=== PATIENT | female | born 1985 | race Caucasian/White ===

== ENCOUNTER 2018-11-23 03:18 | Outpatient (CLI) | payer OTHER ==
[2018-11-23 05:08] LABS: ADD UMIC NO; UR ASCORBIC ACID NEGATIVE (NEGATIVE); UR BILIRUBIN (Dip) NEGATIVE (NEGATIVE); UR BLOOD (Dip) NEGATIVE (NEGATIVE); UR CLARITY CLEAR (CLEAR); UR COLOR YELLOW (YELLOW); UR GLUCOSE (Dip) NEGATIVE (NEGATIVE); UR KETONES (Dip) NEGATIVE (NEGATIVE); UR LEUKOCYTE ESTERASE (Dip) NEGATIVE Leu/ul (NEGATIVE); UR NITRITE (Dip) NEGATIVE (NEGATIVE); UR SPECIFIC GRAVITY (Dip) 1.015 (1.003-1.030); UR TOTAL PROTEIN (Dip) NEGATIVE (NEGATIVE); UR UROBILINOGEN (Dip) NEGATIVE (NEGATIVE)
== END 2018-11-23 06:50 | disposition home or self-care (01) ==
LOC: OBT 03:18 → L-D 03:18 → OBT 06:50
DX: O62.9 Abnormality of forces of labor, unspecified (principal); Z3A.39 39 weeks gestation of pregnancy
CPT/HCPCS: 76815; 76818; 81003

== ENCOUNTER 2018-11-23 21:24 | Inpatient (IN) | payer OTHER ==
[2018-11-23] MEDS ORDERED: METHYLERGONOVINE 0.2 MG INJ IM (22:00)
[2018-11-23] MEDS ORDERED: BUTORPHANOL 2 MG INJ IV (22:00)
[2018-11-23] MEDS ORDERED: IBUPROFEN 600 MG TAB PO (22:00)
[2018-11-23] MEDS ORDERED: OXYTOCIN 30 UNITS/LR 500 ML IV (22:00)
[2018-11-23] MEDS ORDERED: MISOPROSTOL 200 MCG TAB PR (22:00)
[2018-11-23] MEDS ORDERED: CARBOPROST 250 MCG INJ IM (22:00)
[2018-11-23] MEDS ORDERED: LIDOCAINE 1% (MPF) 30 ML INJ INJ (22:00)
[2018-11-23] MEDS: LACTATED RINGER'S 1,000 ML IV (22:03)
[2018-11-23] MEDS ORDERED: LACTATED RINGER'S 1,000 ML IV (22:03)
[2018-11-23 22:04] LABS: ADD MAN DIFF? NO
[2018-11-23 22:09] LABS: BASOPHILS % 0.3 % (0.0-2.0); EOSINOPHILS % 0.3 % (0.0-7.0); HEMATOCRIT 32.4 % (37.0-47.0); HEMOGLOBIN 10.4 g/dl (12.0-16.0); LYMPHOCYTES % 25.5 % (15.0-51.0); MEAN CORPUSCULAR HEMOGLOBIN 26.9 pg (29.0-33.0); MEAN CORPUSCULAR HGB CONC 32.1 g/dl (32.0-37.0); MEAN CORPUSCULAR VOLUME 83.7 fl (82.0-101.0); MEAN PLATELET VOLUME 10.2 fl (7.4-10.4); MONOCYTE # 0.7 10^3/ul (0.3-0.9); MONOCYTES % 9.3 % (0.0-11.0); NEUTROPHIL # 5.1 10^3/ul (1.6-7.5); NEUTROPHILS % 64.2 % (39.0-77.0); PLATELET COUNT 368 10^3/UL (140-415); RED BLOOD COUNT 3.87 10^6/ul (4.20-5.40); RED CELL DISTRIBUTION WIDTH 16.5 % (11.5-14.5)
[2018-11-23 22:09] LABS: WHITE BLOOD COUNT 7.9 10^3/ul (4.8-10.8)
[2018-11-23 22:28] LABS: INR 0.86; PARTIAL THROMBOPLASTIN TIME 23.7 Sec (23.0-35.0); PROTIME 11.8 Sec (11.9-14.9); PT RATIO 0.9
[2018-11-23] MEDS ORDERED: FENTAnyl 2MCG/ML-ROPIV 0.2% 100 ML (22:55)
[2018-11-23] MEDS ORDERED: FENTAnyl 2MCG/ML-ROPIV 0.2% 100 ML BAG EPI (23:00)
[2018-11-23] MEDS ORDERED: NALOXONE (0.4 MG/ML) INJ IV (23:00)
[2018-11-24] MEDS: OXYTOCIN 30 UNITS/LR 500 ML IV ×4 (02:28→06:45)
[2018-11-24] MEDS: LACTATED RINGER'S 1,000 ML IV* ×3 (02:35→18:35)
[2018-11-24] MEDS ORDERED: MISOPROSTOL 200 MCG TAB PR (03:00)
[2018-11-24] MEDS ORDERED: METHYLERGONOVINE 0.2 MG INJ IM (03:00)
[2018-11-24] MEDS ORDERED: OXYTOCIN 30 UNITS/LR 500 ML IV (03:00)
[2018-11-24] MEDS ORDERED: HYDROCODONE/APAP (5/325) TAB PO (03:00)
[2018-11-24] MEDS ORDERED: CARBOPROST 250 MCG INJ IM (03:00)
[2018-11-24] MEDS: IBUPROFEN 600 MG TAB PO ×3 (06:41→17:35)
[2018-11-24 22:14] LABS: RAPID PLASMA REAGIN NONREACTIVE (NR)
[2018-11-25] MEDS: IBUPROFEN 600 MG TAB PO ×3 (00:01→12:31)
[2018-11-25] MEDS: LANOLIN HPA 1 PKT TOP (00:01)
[2018-11-25] MEDS: LACTATED RINGER'S 1,000 ML IV* ×2 (02:35→10:35)
[2018-11-25 09:15] LABS: ADD MAN DIFF? NO
[2018-11-25 09:22] LABS: BASOPHILS % 0.2 % (0.0-2.0); EOSINOPHILS % 0.4 % (0.0-7.0); HEMATOCRIT 30.6 % (37.0-47.0); HEMOGLOBIN 9.7 g/dl (12.0-16.0); LYMPHOCYTES # 2.1 10^3/ul (0.8-2.9); LYMPHOCYTES % 20.9 % (15.0-51.0); MEAN CORPUSCULAR HEMOGLOBIN 27.2 pg (29.0-33.0); MEAN CORPUSCULAR HGB CONC 31.7 g/dl (32.0-37.0); MEAN CORPUSCULAR VOLUME 85.7 fl (82.0-101.0); MEAN PLATELET VOLUME 10.5 fl (7.4-10.4); MONOCYTE # 0.7 10^3/ul (0.3-0.9); MONOCYTES % 6.5 % (0.0-11.0); NEUTROPHIL # 7.3 10^3/ul (1.6-7.5); NEUTROPHILS % 71.5 % (39.0-77.0); PLATELET COUNT 307 10^3/UL (140-415); RED BLOOD COUNT 3.57 10^6/ul (4.20-5.40); RED CELL DISTRIBUTION WIDTH 16.4 % (11.5-14.5)
[2018-11-25 09:22] LABS: WHITE BLOOD COUNT 10.2 10^3/ul (4.8-10.8)
[2018-11-25] MEDS: DIPHTH/TET/ACEL PERTUSS (ADULT) 0.5 ML VIAL IM* (10:33)
== END 2018-11-25 14:57 | disposition home or self-care (01) | DRG 807 ==
LOC: PP1 11-24 04:15 → OBT 21:24 → L-D 21:30 → OBT 21:45 → L-D 21:45
PROVIDERS: Obstetrics & Gynecology
PROC: 10E0XZZ Delivery of Products of Conception, External Approach (ICD-10-PCS; principal; 2018-11-24)
DX: O69.81X0 Labor and delivery complicated by cord around neck, without compression, not applicable or unspecified (principal); Z37.0 Single live birth; Z3A.39 39 weeks gestation of pregnancy; Z23 Encounter for immunization
CPT/HCPCS: 62319; 85025; 85610; 85730; 86592; 86850; 86900; 86901; 90715